=== PATIENT | male | born 1990 | race Hispanic/Latino ===

== ENCOUNTER 2017-07-27 22:31 | Emergency (ER) | payer OTHER ==
[~2017-07-27] VITALS: Ht 165.1 cm; Wt 59.1 kg
[2017-07-27 22:37] VITALS: BP 112/71; PULSE 67; RESP 12; O2SAT 100
--- NOTE | 2017-07-27 22:43 | ED.REPORT ---
HPI-General Illness Date of Service Jul 27, 2017 ED Provider: El Morfin MD Patient is a 27 year old male with a history of heroin and meth abuse who presents to the ED with a productive cough onset 2-3 weeks ago. He was seen in [facility] on 07/18/17 in police custody, where his x-rays determined he had a left lower lobe infiltrate, but the patient was unclear of his exact diagnosis at the time. He says that he was not prescribed or at least did not take antibiotics. Since release from skilled nursing in [facility], he has been concerned about the persistent cough and is relatively homeless living in his car. He came to the emergency department tonight to see whether or not a pneumonia was present. Additional symptoms include fever and chills, but he was unaware if that was from his pneumonia or from his drug abuse. He denies vomiting. Nursing Notes Stated Complaint: POSSIBLE PNEUMONIA Chief Complaint: Respiratory Complaints Nursing Notes Reviewed: Yes Allergies: Coded Allergies: No Known Allergies (Unverified , 07/27/17) General Time Seen by MD: 22:42 Chief Complaint Cough Hx Obtained From: Patient Arrived By: Walk-in Sudden in Onset?: No Onset Occurred: More than a week ago... (2 weeks) Symptom Duration: Constant Quality: Painful Severity: Current: Mild Severity: Maximum: Mild Recent Healthcare: Recent doctor visit Similar Sx Previous: No Past Medical History Past Medical History Denies Past Surgical History Denies Social History Homeless and lives in his car Drug Use: IV drugs, Meth Other Social History: Homeless Ambulatory Status Independent Review of Systems Full Review of Systems Constitutional: Reports: Chills, Fever Respiratory: Reports: Prod cough, clear GI: Denies: Vomiting Complete sys rev & neg: except as marked. Physical Exam Vital Signs Vital Signs Date Time Temp Pulse Resp B/P Pulse Ox O2 Delivery O2 Flow Rate FiO2 07/27/17 22:37 36.5 67 12 112/71 100 Room Air Initial VS: Reviewed Head / Eyes: Atraumatic, Normocephalic Neck: Supple, Full range of motion Extremities: Vascular intact, Neuro intact, No swelling, No tenderness Skin: Warm, Dry, No cyanosis Neurologic: Alert, Oriented, Nonfocal Psychiatric: Mood/affect normal, Behavior normal, Normal thought content General/Constitutional: Awake, Alert Respiratory / Chest: Atraumatic, Breath sounds NL, Breath sounds = bilat, No respiratory distress Cardiovascular: Heart rate NL, Regular rhythm, Heart sounds NL Interpretation & Diagnostics Chest X-Ray from [facility] on 07/18/17: Impression: Left lower lobe infiltrate. X-Ray Chest Interpretation Chest Xray Interpretation: Impression: normal View: AP & lat Interpretation / Wet Read by: Wet read ED physician Re-Eval/Medical Decision Source of Hx: Old records Time of Eval: 23:07 Re-Evaluation/Progress Note: Pt rechecked. Discussed x-ray results from [facility] and need for another chest X-ray tonight. Time of Eval: 23:38 Patient Status: Condition improved Re-Evaluation/Progress Note: Pt rechecked. Discussed x-ray results and plan for discharge. Pt understands and agrees with plan. F/U and RTER warnings given. All questions addressed. Counseled Regarding: Diagnosis, Lab results, Need for follow-up, When/why to return to ED Discharge & Departure Primary Impression: Cough Disposition: Home Discharge Condition All VS Reviewed: Yes Condition: Stable Patient Instructions: Acute Cough (ED) Additional Instructions: No dangerous cause for the cough is discovered. Specifically, I see no evidence of pneumonia on your chest x-ray though the x-ray from a week and a half ago was abnormal on the left side. Follow-up at the clinic in a week if the cough is not improving. For now I recommend extra sleep, quit smoking and drink lots of fluid [facility] Attestation Portions of this note were transcribed by Dawn Fitzpatrick. I, Dr. Morfin, personally performed the history, physical exam and medical decision-making; I reviewed and confirmed the accuracy of the information in the transcribed note. copies to: [facility] Kirk H MD Jul 27, 2017 22:43 Dawn Fitzpatrick Jul 27, 2017 22:50
--- NOTE | 2017-07-28 08:22 | DRSVH ---
PROCEDURE: X-RAY CHEST, TWO VIEWS ([id number]) INDICATIONS: cough TECHNIQUE: 2 views of the chest were acquired. COMPARISON: None. FINDINGS: Surgical changes and devices: None. Lungs and pleura: No pleural effusions or pneumothorax. Lungs are clear. Mediastinum: Mediastinal contours are normal. Heart size is normal. Bones and chest wall: No suspicious bony abnormalities. Soft tissues appear unremarkable. IMPRESSION: No source of cough is found. Note: These findings are concordant with the preliminary interpretation. Dictated by: Santy Rose M.D. on 07/28/2017 at 8:20 Approved by: Santy Rose M.D. on 07/28/2017 at 8:20
== END 2017-07-28 00:25 | disposition home or self-care (01) ==
LOC: SED 22:31
DX: R05 Cough (principal); R50.9 Fever, unspecified; Z59.0 Homelessness